=== PATIENT | female | born 1965 | race Caucasian/White ===

== ENCOUNTER 2022-10-30 07:09 | Emergency (ER) | payer MEDICAID, SELFPAY ==
[2022-10-30 07:10] VITALS: BP 178/93; PULSE 84; RESP 18; TEMP 36.5; O2SAT 97; BMI 29.9
--- NOTE | 2022-10-30 07:11 | XRR_ITS ---
PROCEDURE INFORMATION: Exam: XR Chest Exam date and time: 10/30/2022 7:23 AM Age: 56 years old Clinical indication: Pain; Angina pectoris; Additional info: Chest pain TECHNIQUE: Imaging protocol: Radiologic exam of the chest. Views: 1 view. COMPARISON: No relevant prior studies available. FINDINGS: Lungs: Linear scarring, possible bulla at the left lung apex. No consolidation. Pleural spaces: Unremarkable. No pleural effusion. No pneumothorax. Heart/Mediastinum: Unremarkable. No cardiomegaly. Bones/joints: Unremarkable. XR/XR chest 1V portable [id number] IMPRESSION: No acute findings.
--- NOTE | 2022-10-30 07:12 | ED_ITS ---
HPI - Chest Pain General: Chief Complaint: Chest Pain Stated Complaint: Chest Pain Time Seen by Provider: 10/30/22 07:11 Source: patient Mode of arrival: EMS History of Present Illness: 56-year-old female who presents to the emergency room with a complaint of chest pain. She has substernal chest pain rating to the neck that began while at rest. She reports a significant cardiac history with multiple previous stents and angiograms done in [place] and at a hospital in [facility]. She thinks her last 1 was a couple of years ago. Additionally she states she has been off of all her medications for a week since moving back to this area. She was previously on clopidogrel and isosorbide mononitrate as well as atorvastatin clonidine and lisinopril. She relates that she is borderline diabetic as well. Chest pain began while at rest and was relieved per her report with nitroglycerin. MD complaint: chest pain Onset (ago): hour(s) Timing of current episode: episodic Prior episodes: Yes Onset: during rest Pain location: substernal Pain radiation: neck Severity: moderate Quality: aching and heaviness Relieving factors: nitroglycerin Associated symptoms: Deny abdominal pain, dyspnea, fever(s), nausea or vomiting Review of Systems Const: Denies: fever(s), chills, fatigue or malaise Card: Reports: chest pain; Denies: edema, dyspnea on exertion or orthopnea Resp: Denies: dyspnea, productive cough or non-productive cough GI: Denies: abdominal pain, nausea or vomiting : Denies: flank pain, difficulty voiding, dysuria, urinary frequency or urinary urgency Skin/Breast: Denies: rash or pruritus [facility] ED PFSH: Medical History (Updated 10/30/22 @ 12:05 by Alin Singh DO) Hx of coronary angiogram Hypertension Impaired glucose tolerance Psychiatric care Social History (Updated 10/30/22 @ 07:39 by Alin Singh DO) Smoking and tobacco status: current every day smoker Physical Exam Const: GENERAL APPEARANCE: cooperative and comfortable ORIENTATION/CONSCIOUSNESS: Yes awake, Yes oriented to person, Yes oriented to place and Yes oriented to time HENMT: COMMON NORMALS: normocephalic, atraumatic and hearing grossly normal bilaterally HEAD & SCALP: normocephalic and atraumatic Resp: COMMON NORMALS: normal respiratory effort, No retractions, No use of accessory muscles and clear to auscultation bilaterally AUSCULTATION: clear to auscultation bilaterally Cardio: COMMON NORMALS: regular rate, regular rhythm and No murmurs present (Cardio) RATE: regular rate RHYTHM: regular rhythm GI: COMMON NORMALS: Soft to palpation and No hepatosplenomegaly present AUSCULTATION: Yes normoactive bowel sounds PALPATION: Yes Soft to palpation, No Tenderness to palpation present (GI), No Guarding due to palpation present (GI) and Yes No hepatosplenomegaly present Extremity: COMMON NORMALS: normal to inspection, capillary refill normal, no clubbing, cyanosis or edema, no calf tenderness and no pedal edema Neuro: SENSORIUM/ORIENTATION: Yes oriented to person, Yes oriented to place and Yes oriented to time Skin: COMMON NORMALS: no rashes or lesions noted GENERAL SKIN EXAM: no rashes or lesions noted Course Vital Signs: Vital signs: Vital Signs Temperature 97.7 F 10/30/22 07:10 Pulse Rate 67 10/30/22 09:46 Respiratory Rate 18 10/30/22 09:46 Blood Pressure 173/110 10/30/22 11:47 Pulse Oximetry 96 10/30/22 09:46 Oxygen Delivery Me thod Room Air 10/30/22 09:46 MDM - Chest Pain Medical Decision Making Cardiac enzymes and EKG negative. Patient reports extensive cardiac history including multiple stents. She been seen in [facility] and Hospital in [facility]. [place] visit was mostly surrounding blood pressure and a headache. Was concerned because of the reported history and her reports of chest pain while at rest requiring nitroglycerin. We had her stay since confirming her history would change disposition. Ultimately where we we were able to get the records from [place] which showed that in August 2021 she had a cardiac catheterization which showed normal coronary arteries there is no mention of any stents at the time of that angiogram. She also commented to physicians at [place] that she needed an aortic valve replacement they documented a normal aortic valve with no flow gradient. She is still adamant that she previously had stents recommend that she restart her lisinopril and isosorbide mononitrate also we will put her back on Plavix for antiplatelet therapy until this can be sorted out by getting old records from [place]. I do not think she needs to be admitted at this time given her normal cardiac work-up including angiography recently. We will ask sample case porter to help assist her to establish with a primary care doctor. Medical Records I reviewed the patient's medical records. Lab Data I reviewed the patient's lab results. 10/30/22 06:55 10/30/22 06:55 Radiology Impressions Chest X-Ray 10/30/22 07:11 IMPRESSION: No acute findings. Laboratory Results WBC 9.8 10^3/uL (4.0-10.0) 10/30/22 06:55 RBC 4.25 10^6/uL (4.1-5.3) 10/30/22 06:55 Hgb 13.3 g/dL (11.5-15.3) 10/30/22 06:55 Hct 40.1 % (37.0-47.0) 10/30/22 06:55 MCV 94.4 fl (81-99) 10/30/22 06:55 MCH 31.3 pg (28.0-34.0) 10/30/22 06:55 MCHC 33.2 g/dL (30.0-36.0) 10/30/22 06:55 RDW 12.3 % (12.1-15.1) 10/30/22 06:55 Plt Count 396 10^3/cmm (130-400) 10/30/22 06:55 MPV 9.1 fL (7.4-10.4) 10/30/22 06:55 Neut % (Auto) 48.3 % 10/30/22 06:55 Lymph % (Auto) 42.2 % 10/30/22 06:55 [place] % (Auto) 5.8 % 10/30/22 06:55 Eos % (Auto) 2.7 % 10/30/22 06:55 Baso % (Auto) 0.6 % 10/30/22 06:55 Neut # (Auto) 4.74 10^3/uL (1.8-7.7) 10/30/22 06:55 Lymph # (Auto) 4.1 10^3/uL (0.8-4.8) 10/30/22 06:55 [place] # (Auto) 0.6 10^3/uL (0.2-0.9) 10/30/22 06:55 Eos # (Auto) 0.3 10^3/uL (0.0-0.8) 10/30/22 06:55 Baso # (Auto) 0.1 10^3/uL (0.0-0.1) 10/30/22 06:55 Nucleated RBC % (auto) 0 % 10/30/22 06:55 Nucleated RBCs # 0.0 /100WBC 10/30/22 06:55 Sodium 139 mmol/L (136-145) 10/30/22 06:55 Potassium 4.4 mmol/L (3.5-5.1) 10/30/22 06:55 Chloride 105 mmol/L (98-107) 10/30/22 06:55 Carbon Dioxide 23 mmol/L (22-29) 10/30/22 06:55 Anion Gap 15.4 (5-19) 10/30/22 06:55 BUN 17 mg/dL (6-20) 10/30/22 06:55 Creatinine 0.6 mg/dL (0.5-0.9) 10/30/22 06:55 GFR Calculation 103.8 mL/min (90-130) 10/30/22 06:55 Glucose 180 mg/dL (65-115) H 10/30/22 06:55 Calculated Osmolality 294 mOsm/kg (285-295) 10/30/22 06:55 Calcium 8.8 mg/dL (8.5-10.5) 10/30/22 06:55 Total Bilirubin 0.2 mg/dL (0.15-1.2) 10/30/22 06:55 AST 15 U/L (0-32) 10/30/22 06:55 ALT 11 U/L (0-33) 10/30/22 06:55 Alkaline Phosphatase 81 U/L (35-105) 10/30/22 06:55 Troponin T Baseline 8 ng/L (0-10) 10/30/22 06:55 Troponin T 120 Minute 6.52 ng/L (0-10) 10/30/22 08:42 Delta Troponin T -1.48 ABS# (0-10) L 10/30/22 08:42 Total Protein 6.0 g/dL (6.6-8.7) L 10/30/22 06:55 Albumin 3.8 g/dL (3.5-5.2) 10/30/22 06:55 Globulin 2.2 g/dL (1.3-4.6) 10/30/22 06:55 Discharge Plan Discharge Patient Disposition: Home Clinical Impression: Impaired glucose tolerance, Hypertension Condition: Stable Prescriptions: New clopidogrel 75 mg tablet 75 mg PO DAILY Qty: 30 0RF isosorbide mononitrate 30 mg tablet extended release 24 hr 30 mg PO DAILY Qty: 30 0RF lisinopril 10 mg tablet 10 mg PO DAILY Qty: 30 0RF No Action clonidine HCl 0.1 mg Tablet 0.1 mg PO QAM Lipitor 20 mg Tablet 20 mg PO QAM Celexa 40 mg Tablet 40 mg PO DAILY PRN (Reason: mood) Xanax 1 mg Tablet 1 mg PO TID PRN (Reason: Anxiety) isosorbide mononitrate 30 mg Tablet Extended Release 24 Hr 30 mg PO QAM Plavix 75 mg Tablet 75 mg PO QAM lisinopril 10 mg Tablet 10 mg PO QAM ibuprofen 200 mg Tablet 1,200 mg PO Q6H PRN (Reason: Pain) hydroxyzine HCl 25 mg Tablet 25 mg PO QID PRN (Reason: Anxiety) Discharge Orders: Discharge ED (Routine); Ordered 10/30/22 Ordered By: Alin Singh Discharge Diet: Usual diet Discharge Activity: Increase activity as tolerated Patient Instructions: Opioid Safety, Pain Management Activity Restrictions/Additional Instructions: You were seen here today for an episode of chest pain. Old records were obtained from [place] and from hospital in [facility] where you were seen last year. The angiogram done last year showed normal coronary arteries. Recommend that you restart your isosorbide mononitrate and your lisinopril. You should also be on some form of antiplatelet therapy. There was no mention of stents in the angiogram done in [place] however you had mentioned that you with recalled having stents placed while in [place]. Until this is confirmed through old records would recommend that you continue taking clopidogrel. Case management will assist you in establishing locally with your primary care doctor. Stand Alone Forms: Work/School Release Coding Level of Care Code ED Insurance Account Assistant for Ivania Andrews
--- NOTE | 2022-10-30 07:12 | ECG_ITS ---
[facility] Test Date: 2022-10-30 Pat Name: Tomeka Fischer Department: Room: Gender: Female Gypsum Block Setter: : 1965 Requested By: Alin Aiken Order Number: [id number] Mary MD: Tatiana Navarrete M.D. Measurements Intervals [place] Rate: 80 P: 55 MN: 162 QRS: 73 QRSD: 85 T: 75 QT: 391 QTc: 452 Interpretive Statements SINUS RHYTHM POSSIBLE LEFT ATRIAL ENLARGEMENT [-0.1mV P-WAVE IN V1/V2] POSSIBLE RIGHT VENTRICULAR CONDUCTION DELAY [RSR (QR) IN V1/V2] No previous ECG available for comparison Electronically Signed On 10-30-2022 12:00:48 CDT by Tatiana Navarrete M.D. [email or web address] Securitieswest campus of delta regional medical centerGekko Global Marketsmercy health – the jewish hospital.[employer]/store/[id number]
[2022-10-30 07:27] LABS: Basophils # 0.1 10^3/uL (0.0-0.1); Basophils % 0.6 %; Eosinophils # 0.3 10^3/uL (0.0-0.8); Eosinophils % 2.7 %; Hematocrit 40.1 % (37.0-47.0); Hemoglobin 13.3 g/dL (11.5-15.3); Lymphocytes # 4.1 10^3/uL (0.8-4.8); Lymphocytes % 42.2 %; Mean Corpuscular HGB Conc 33.2 g/dL (30.0-36.0); Mean Corpuscular Hemoglobin 31.3 pg (28.0-34.0); Mean Corpuscular Volume 94.4 fl (81-99); Mean Platelet Volume 9.1 fL (7.4-10.4); Monocytes # 0.6 10^3/uL (0.2-0.9); Monocytes % 5.8 %; Neutrophils # 4.74 10^3/uL (1.8-7.7); Neutrophils % 48.3 %; Nucleated Red Blood Cells % 0 %; Platelet Count 396 10^3/cmm (130-400); Red Blood Count 4.25 10^6/uL (4.1-5.3); Red Cell Distribution Width 12.3 % (12.1-15.1); White Blood Count 9.8 10^3/uL (4.0-10.0)
[2022-10-30 07:41] LABS: Troponin(5th) Baseline 8 ng/L (0-10)
[2022-10-30 07:46] LABS: Alanine Aminotransferase 11 U/L (0-33); Albumin Level 3.8 g/dL (3.5-5.2); Alkaline Phosphatase 81 U/L (35-105); Blood Urea Nitrogen 17 mg/dL (6-20); Calcium 8.8 mg/dL (8.5-10.5); Carbon Dioxide 23 mmol/L (22-29); Chloride 105 mmol/L (98-107); Globulin 2.2 g/dL (1.3-4.6); Glomerular Filtration Rate 103.8 mL/min (90-130); Glucose 180 mg/dL (65-115); Osmolality Calculated 294 mOsm/kg (285-295); Sodium 139 mmol/L (136-145); Total Bilirubin 0.2 mg/dL (0.15-1.2)
[2022-10-30 07:51] LABS: Anion Gap 15.4 (5-19); Aspartate Amino Transferase 15 U/L (0-32); Potassium 4.4 mmol/L (3.5-5.1)
[2022-10-30] MEDS: metoprolol tartrate 1 mg/1 mL SDV 5 mL 2.5 MG IVP (07:52)
[2022-10-30] MEDS: metoprolol succinate ER (24 HR) 25 mg Tablet PO (07:52)
[2022-10-30 07:53] VITALS: BP 185/107; PULSE 81
[2022-10-30] MEDS: nitroglycerin 1 gm/inch oint Pkt 0.5 INCH TOPICAL (07:53)
[2022-10-30 08:00] VITALS: BP 185/107; PULSE 71; RESP 21; O2SAT 96
--- NOTE | 2022-10-30 08:15 | PC.NURSE ---
Pt requested drink. Explained to pt we needed to get tests back. Pt verbalized understanding.
--- NOTE | 2022-10-30 08:42 | PC.PHAR ---
pt states she takes care of her own medications-pt states they restarted her on lisinopril 10mg qam pt brought in med bottle for lisinopril 10mg daily dated 09/21/22 and lisinopril 30mg daily rx bottle dated 03/20/22 pt states only taking the 10mg qam-pt states she takes lipitor 20mg qam rx bottle brought in dated 03/20/22 90d/s-pt states she ran out of imdur er 30mg daily a week ago rx bottle brought in dated 03/21/22 90d/s-pt states she takes her plavix 75mg daily rx bottle dated 09/21/22 30d/s-pt states she ran out of her xanax 1mg tid prn last week rx bottle dated 09/26/22 #12-pt brought in celexa 40mg daily dated 03/23/22 pt states she hasnt been taking states if she did she would take prn -pt states she hasnt taken metoprolol tart 25mg bid since mar 2022 bottle brought in dated 02/19/22-pt also brought in clonidine 0.1mg bid filled 09/21/22 pt states she has been trying to make it last so she has just been taking 0.1mg qam-notes are made in the pharmacy comments
--- NOTE | 2022-10-30 09:10 | PC.NURSE ---
approved drink at this time. Pt brought diet coke per her request. Denies further needs at this time.
--- NOTE | 2022-10-30 09:12 | ECG_ITS ---
[facility] Test Date: 2022-10-30 Pat Name: Tomeka Fischer Department: Room: Gender: Female Processing Rep: : 1965 Requested By: Alin Aiken Order Number: [id number] Mary MD: Tatiana Navarrete M.D. Measurements Intervals [place] Rate: 56 P: 60 [place]: 167 QRS: 72 QRSD: 89 T: 76 QT: 443 QTc: 431 Interpretive Statements SINUS BRADYCARDIA POSSIBLE RIGHT VENTRICULAR CONDUCTION DELAY [RSR (QR) IN V1/V2] Compared to ECG 10/30/2022 07:17:09 Sinus rhythm no longer present Electronically Signed On 10-30-2022 12:03:30 CDT by Tatiana Navarrete M.D. [id number]
[2022-10-30 09:15] VITALS: BP 169/99; PULSE 66; RESP 20; O2SAT 97
[2022-10-30 09:22] LABS: Troponin 5 2HR 6.52 ng/L (0-10); Troponin 5 2HR Delta -1.48 ABS# (0-10)
[2022-10-30 09:46] VITALS: BP 150/98; PULSE 67; RESP 18; O2SAT 96
--- NOTE | 2022-10-30 10:26 | PC.NURSE ---
This RN to bedside. Explained to pt that labs were back, but MD is waiting on records from outside facility to talk to tire changer aircraft here. Pt is obviously upset and states From [place]?! That will take all day! Pt c/o headache and states we haven't given her anything for pain. offered Tylenol, but pt declined and states I have IBUprofen . Pt states Can I just talk to the doctor. MD aware. MD and nurse magazine supervisor to pt bedside. At this time, pt had pulled off traffic monitor specialist and refused to allow this RN to attempt vitals.
--- NOTE | 2022-10-30 11:10 | PC.NURSE ---
Addendum entered by Gabriella Robles RN 10/30/22 11:12: Previous note documented late. Incident happened at 1018. Original Note: Robert to RN states pt is asking for an update. This RN at a critical pt bedside and requested Robret tell pt this RN would be there to update her bernardo.
--- NOTE | 2022-10-30 11:19 | PC.NURSE ---
Pt made aware of plan of care including meds to be given. Pt agreeable to this at this time.
--- NOTE | 2022-10-30 11:25 | PC.NURSE ---
Pt refusing vitals at this time. Wants food. MD made aware and food ordered. Pt given pudding and jello and made aware that a food tray was coming. Pt does not wish to stay for food tray. IV DC'd. Cath intact.
[2022-10-30] MEDS: clopidogrel 75 mg Tablet PO (11:26)
[2022-10-30] MEDS: isosorbide mononitrate ER 30 mg Tablet PO (11:26)
[2022-10-30] MEDS: LORazepam 2 mg Tablet PO (11:26)
[2022-10-30] MEDS: lisinopril 10 mg Tablet PO (11:26)
[2022-10-30 11:47] VITALS: BP 173/110
--- NOTE | 2022-10-30 11:47 | PC.NURSE ---
This RN and MD to bedside to go over findings and DC instructions. Pt verbalized understanding and told MD she has no further questions. Pt agreeable to allow me to take one BP before she leaves.
--- NOTE | 2022-10-31 09:41 | DCPLANNER ---
Addendum entered by Diana Guzman 11/12/22 15:47: Patient did attend this appointment to establish care with Dr. Reid Addendum entered by Diana Guzman 11/01/22 10:49: lands resource manager received the following message from [facility] regarding follow up appointment: Referral for Dr Contreras but she doesn't want to wait that long so I have sent the referral back to the Nurse Mat Weaver to approve her seeing a different provider. Addendum entered by Diana Guzman 11/01/22 10:46: Patient called family service caseworker back wanting help in getting established with a primary care physician. lands resource manager called [facility], a follow up appointment was scheduled for Saturday, November 07, 2022 at 8:[address] Reid. Patient is aware of appointment. Patient asked about services at [facility] being scheduled, patient stated that she had completed her initial assessment. lands resource manager messaged [facility] about getting patient scheduled with both therapy services and medication services. Original Note: lands resource manager had message to speak with patient about getting established with a primary care physician - no answer at this time.
== END 2022-10-30 12:34 | disposition home or self-care (01) ==
PROVIDERS: Emergency Provider Family Medicine
DX: I10 Essential (primary) hypertension (principal); R73.02 Impaired glucose tolerance (oral); Z79.02 Long term (current) use of antithrombotics/antiplatelets; F17.210 Nicotine dependence, cigarettes, uncomplicated
CPT/HCPCS: 36415; 71045; 80053; 84484; 85025; 93005; 96374; 99285; J3490

== ENCOUNTER 2022-11-01 15:11 | Emergency (ER) | payer MEDICAID, SELFPAY ==
[2022-11-01 15:16] VITALS: BP 127/82; PULSE 84; RESP 16; TEMP 36.5; O2SAT 97
--- NOTE | 2022-11-01 15:39 | W.ED.HA ---
HPI - Headache General: Chief Complaint: Headache Stated Complaint: high blood sugar , migrane Time Seen by Provider: 11/01/22 15:30 Source: patient Mode of arrival: ambulatory Limitations: no limitations History of Present Illness: 56-year-old female states that she has had a headache since 1030. States she has a history of migraines headache began gradually is worsened throughout the day states headaches currently an 8 out of 10 she had some slight photophobia. She denies any weakness denies this being the worst headache of her life. She had no vomiting. Associated symptoms: Deny chest pain, fever(s), nausea, rash or vomiting Review of Systems Const: Denies: fever(s) or chills ENMT: Denies: throat pain or dental pain Card: Denies: chest pain Resp: Denies: dyspnea GI: Denies: abdominal pain, nausea, vomiting or diarrhea Musc: Denies: neck pain or back pain Skin/Breast: Denies: rash Neuro: Reports: headache(s) PFS ED PFSH: Medical History Hx of coronary angiogram Hypertension Impaired glucose tolerance Psychiatric care Social History Smoking and tobacco status: current every day smoker Physical Exam Const: COMMON NORMALS: no acute distress, patient oriented x3 and healthy appearing HENMT: COMMON NORMALS: normocephalic and atraumatic HEAD & SCALP: normocephalic and atraumatic Eye: COMMON NORMALS: Equal, round and reactive pupils present and EOMs intact bilaterally PUPIL: Yes Equal, round and reactive pupils present Neck/C-Spine: COMMON NORMALS: full ROM and supple Chest: COMMONS NORMALS: normal inspection of the chest Resp: COMMON NORMALS: normal respiratory effort Cardio: COMMON NORMALS: regular rate, regular rhythm and No murmurs present (Cardio) RATE: regular rate RHYTHM: regular rhythm GI: INSPECTION: Yes normal to inspection Extremity: COMMON NORMALS: normal to inspection and full ROM Neuro: COMMON NORMALS: patient oriented x3, moves all extremities and no focal motor deficits Psych: COMMON NORMALS: mental status grossly normal, Normal thought process present and cooperative THOUGHT PROCESS: Normal thought process present Skin: COMMON NORMALS: no rashes or lesions noted and no wounds GENERAL SKIN EXAM: no rashes or lesions noted Course Vital Signs: Vital signs: Vital Signs Temperature 97.7 F 11/01/22 15:16 Pulse Rate 70 11/01/22 16:04 Respiratory Rate 16 11/01/22 16:04 Blood Pressure 129/78 11/01/22 16:04 Pulse Oximetry 95 11/01/22 16:04 Oxygen Delivery Me thod Room Air 11/01/22 16:04 MDM - Headache Medical Decision Making Patient presents here with headache likely migraine headache her headaches much improved after Reglan Benadryl she is stable for discharge no signs of subarachnoid hemorrhage or meningitis. Discharge Plan Discharge Patient Disposition: Home Clinical Impression: Headache Condition: Stable Prescriptions: No Action clonidine HCl 0.1 mg Tablet 0.1 mg PO QAM atorvastatin [Lipitor] 20 mg Tablet 20 mg PO QAM alprazolam [Xanax] 1 mg Tablet 1 mg PO TID PRN (Reason: Anxiety) hydroxyzine HCl 25 mg Tablet 25 mg PO QID PRN (Reason: Anxiety) clopidogrel 75 mg tablet 75 mg PO DAILY Qty: 30 0RF lisinopril 10 mg tablet 10 mg PO DAILY Qty: 30 0RF metoprolol tartrate 25 mg tablet 25 mg PO BID Discharge Orders: Discharge ED (Routine); Ordered 11/01/22 Ordered By: Tony Norris Referrals: Heraclio Reid MD [Primary Care Provider] - Discharge Diet: Advance as tolerated Discharge Activity: Resume usual activity Patient Instructions: Acute Headache (ED) Coding Level of Care Code ED Oracle Consultant for Ivania Andrews
[2022-11-01] MEDS: metoclopramide 5 mg/mL SDV 2 mL 10 MG IVP (15:53)
[2022-11-01] MEDS: sodium chloride 0.9% 1,000 ML 999 ML IV (15:53)
[2022-11-01] MEDS: diphenhydrAMINE 50 mg/mL SDV 1mL IVP (15:53)
[2022-11-01 16:04] VITALS: BP 129/78; PULSE 70; RESP 16; O2SAT 95
== END 2022-11-01 17:31 | disposition home or self-care (01) ==
PROVIDERS: Emergency Provider Emergency Medicine; PCP Family Medicine Adult Medicine
DX: R51.9 Headache, unspecified (principal); Z79.02 Long term (current) use of antithrombotics/antiplatelets; I10 Essential (primary) hypertension; F17.210 Nicotine dependence, cigarettes, uncomplicated
CPT/HCPCS: 96374; 96375; 99285; J1200; J2765; J7030

== ENCOUNTER 2022-11-03 18:19 | Emergency (ER) | payer MEDICAID, SELFPAY ==
--- NOTE | 2022-11-03 18:26 | CTR_ITS ---
PROCEDURE INFORMATION: Exam: CT Head Without Contrast Exam date and time: 11/03/2022 6:23 PM Age: 56 years old Clinical indication: Stroke-like symptoms; Right facial droop; Additional info: Headache with RT facial droop TECHNIQUE: Imaging protocol: Computed tomography of the head without contrast. Radiation optimization: All CT scans at this facility use at least one of these dose optimization techniques: automated exposure control; mA and/or kV adjustment per patient size (includes targeted exams where dose is matched to clinical indication); or iterative reconstruction. Other technique: STROKE PROTOCOL was implemented. REPORTING DATA: Count of CT and Cardiac NM exams in prior 12 months: This patient has received 0 known CTs and 0 known cardiac nuclear medicine studies in the 12 months prior to the current study. COMPARISON: No relevant prior studies available. RADIATION DOSE METRICS: Total DLP (mGy-cm): 1130.38 FINDINGS: Brain: No hemorrhage. No edema. Mild diffuse cerebral atrophy and sequela of chronic small vessel ischemic disease. Rounded area of hypoattenuation in the left basal ganglia measuring 9 mm in size of indeterminate age. No mass effect. Cerebral ventricles: No ventriculomegaly. Paranasal sinuses: Visualized sinuses are unremarkable. No fluid levels. Mastoid air cells: Visualized mastoid air cells are well aerated. Bones/joints: Unremarkable. No acute fracture. Soft tissues: Unremarkable. CT/CT head wo con* [id number] IMPRESSION: Rounded area of hypoattenuation in the left basal ganglia suggestive of an age-indeterminate lacunar infarct. Otherwise, no acute findings. ASSESSMENT: ASPECTS ([place] Stroke Program Early CT Score) is 10.
[2022-11-03 18:29] VITALS: BP 170/107; PULSE 86; RESP 16; O2SAT 97
[2022-11-03 18:38] LABS: Basophils # 0.1 10^3/uL (0.0-0.1); Basophils % 0.7 %; Eosinophils # 0.2 10^3/uL (0.0-0.8); Eosinophils % 1.8 %; Hematocrit 37.7 % (37.0-47.0); Hemoglobin 12.8 g/dL (11.5-15.3); Lymphocytes % 47.3 %; Mean Corpuscular Hemoglobin 31.1 pg (28.0-34.0); Mean Corpuscular Volume 91.7 fl (81-99); Mean Platelet Volume 9.3 fL (7.4-10.4); Monocytes # 0.7 10^3/uL (0.2-0.9); Monocytes % 6.6 %; Neutrophils # 4.57 10^3/uL (1.8-7.7); Nucleated Red Blood Cells % 0 %; Platelet Count 428 10^3/cmm (130-400); Red Blood Count 4.11 10^6/uL (4.1-5.3); Red Cell Distribution Width 12.6 % (12.1-15.1); White Blood Count 10.6 10^3/uL (4.0-10.0)
[2022-11-03 18:45] VITALS: BP 188/95; PULSE 82; RESP 16; O2SAT 96
[2022-11-03 18:50] LABS: INR 0.88 (0.8-1.2)
[2022-11-03 18:51] LABS: Partial Thromboplastin Time 28.9 SECONDS (23.9-36.7)
--- NOTE | 2022-11-03 18:56 | ECG_ITS ---
[facility] Test Date: 2022-11-03 Pat Name: Tomeka Fischer Department: Room: Gender: Female Eyelet Punch Operator: : 1965 Requested By: Valerio Braxton Order Number: [id number] Mary MD: Tatiana Navarrete M.D. Measurements Intervals [place] Rate: 78 P: 130 SD: 163 QRS: 110 QRSD: 150 T: 139 QT: 438 QTc: 501 Interpretive Statements SINUS RHYTHM ARM LEADS REVERSED [INVERTED P AND QRS IN I] Compared to ECG 10/30/2022 09:19:18 Sinus bradycardia no longer present Electronically Signed On 11-03-2022 23:22:41 CDT by Tatiana Navarrete M.D. [id number]
[2022-11-03 19:00] VITALS: BP 175/91; PULSE 80; RESP 16; O2SAT 94
[2022-11-03 19:00] LABS: Alanine Aminotransferase 12 U/L (0-33); Alkaline Phosphatase 79 U/L (35-105); Anion Gap 16.6 (5-19); Aspartate Amino Transferase 14 U/L (0-32); Blood Urea Nitrogen 18 mg/dL (6-20); Calcium 8.7 mg/dL (8.5-10.5); Carbon Dioxide 22 mmol/L (22-29); Chloride 104 mmol/L (98-107); Globulin 2.6 g/dL (1.3-4.6); Glomerular Filtration Rate 86.9 mL/min (90-130); Glucose 217 mg/dL (65-115); Osmolality Calculated 296 mOsm/kg (285-295); Potassium 3.6 mmol/L (3.5-5.1); Sodium 139 mmol/L (136-145); Total Bilirubin 0.2 mg/dL (0.15-1.2); Total Protein 6.6 g/dL (6.6-8.7)
[2022-11-03 19:02] LABS: Alcohol Level < 10 mg/dL (0-10)
[2022-11-03] MEDS: dexamethasone 4 mg/mL INJ 8 MG IVP (19:06)
[2022-11-03] MEDS: valproic acid inj 500 MG in sodium chloride 0.9% 50 ML 55 MG IV (19:09)
[2022-11-03 19:15] VITALS: BP 163/94; PULSE 74; RESP 16; O2SAT 96
[2022-11-03] MEDS: ketorolac 60 mg/2 mL INJ 30 MG IM (19:25)
[2022-11-03 19:47] LABS: Amphetamines Screen Urine Positive (Negative); Barbiturates Screen Urine Negative (Negative); Benzodiazepines Screen Urine Negative (Negative); Cocaine Screen Urine Negative (Negative); Opiate Screen Urine Negative (Negative); PCP Screen Urine Negative (Negative); THC Screen Urine Positive (Negative)
[2022-11-03 19:56] LABS: Add Urine Culture? Yes; Add Urine Microscopic? YES; Bacteria Urine TRACE /hpf; Bilirubin Urine Neg (Negative); Blood Urine Neg (Negative); Glucose Urine UA Norm (Normal); Ketones Urine Negative (Negative); Leukocyte Esterase Urine Trace (Negative); Nitrate Urine Negative (Negative); Protein Urine Neg (Negative); RBC Urine 0-4 /hpf (0-2); Squamous Epithelial Cell Urine 15-25 /hpf (0-5); Urine Appearance Cloudy (CLEAR); Urine Color Yellow (Yellow); Urobilinogen Urine Norm (Negative); pH Urine 5 (5-7)
[2022-11-03 20:02] VITALS: BP 166/90; PULSE 78; RESP 16; O2SAT 96
[2022-11-03 21:03] VITALS: BP 182/104; PULSE 82; RESP 16; O2SAT 99
[2022-11-03] MEDS: cloNIDine 0.1 mg Tablet PO (21:12)
[2022-11-03] MEDS: metoprolol tartrate 25 mg Tablet PO (21:12)
--- NOTE | 2022-11-03 23:08 | W.ED.HA ---
HPI - Headache General: Chief Complaint: Headache Stated Complaint: HEADACHE; RIGHT EYE DROOPING Time Seen by Provider: 11/03/22 18:21 Source: patient History of Present Illness: 56-year-old female who tells me she has a history of heart disease as well as mini strokes in the past. She has some facial asymmetry she says. She presents with a headache, and right-sided facial droop. She states the facial droop is worse than it has been. She awoke from a nap around 430 and noticed this. She has no language problems, vision changes, or significant weakness otherwise. She notes that her head hurts quite badly. MD elicited complaint: headache and migraine Associated symptoms: Reports nausea, photophobia and weakness; Deny chest pain, confusion, fever(s), neck stiffness, rash, seizures or vomiting Review of Systems Const: Denies: fever(s) Eyes: Denies: change in vision Card: Denies: chest pain Resp: Denies: dyspnea GI: Reports: nausea; Denies: abdominal pain or vomiting Musc: Denies: neck pain Skin/Breast: Denies: rash Neuro: Reports: headache(s) and other; Denies: numbness in extremities, weakness in extremities, sensory changes, dizziness, confusion or Slurred speech present [facility] ED PFSH: Medical History Hx of coronary angiogram Hypertension Impaired glucose tolerance Psychiatric care Social History Smoking and tobacco status: current every day smoker Physical Exam Const: COMMON NORMALS: no acute distress and alert GENERAL APPEARANCE: cooperative; not ill appearing and not frail appearing HENMT: COMMON NORMALS: normocephalic and Normal external nose present HEAD & SCALP: normocephalic FACE & SINUS: normal facial exam and face symmetric NOSE: Normal external nose present Eye: COMMON NORMALS: Equal, round and reactive pupils present and EOMs intact bilaterally PUPIL: Yes Equal, round and reactive pupils present DIRECT OPHTHALMOSCOPY: Yes photophobia Neck/C-Spine: GENERAL: Yes trachea midline Chest: CHEST: Yes Symmetrical chest wall rise Resp: COMMON NORMALS: normal respiratory effort, No retractions, No use of accessory muscles and clear to auscultation bilaterally AUSCULTATION: clear to auscultation bilaterally Cardio: COMMON NORMALS: regular rate and regular rhythm RATE: regular rate RHYTHM: regular rhythm GI: COMMON NORMALS: Normal to inspection, nondistended, normoactive bowel sounds present Extremity: COMMON NORMALS: no pedal edema Neuro: FERNANDO COMA SCALE: document GCS findings [place] coma scale eye opening: Spontaneous Fernando coma scale verbal response: Orientated Fernando coma scale motor response: Obey commands Fernando coma scale total score: 15 SENSORIUM/ORIENTATION: Yes alert CRANIAL NERVES: Yes CN VII (facial) Laterality: right CN VII findings: facial droop COORDINATION/BALANCE: avehrh-fh-lzhh test normal and nsog-il-eoqh test normal SPEECH: speech normal SENSORY EXAM: Yes extremities (intact) MOTOR EXAM: 5/5 motor strength present throughout and Pronator motor function not present COORDINATION: gbkehw-da-eaju test normal and qbiq-py-zyun test normal Psych: COMMON NORMALS: mental status grossly normal, cooperative and speech normal SPEECH: Yes normal speech Skin: COMMON NORMALS: no rashes or lesions noted GENERAL SKIN EXAM: no rashes or lesions noted Course Vital Signs: Vital signs: Vital Signs Pulse Rate 82 11/03/22 21:03 Respiratory Rate 16 11/03/22 21:03 Blood Pressure 182/104 11/03/22 21:03 Pulse Oximetry 99 11/03/22 21:03 Oxygen Delivery Me thod Room Air 11/03/22 18:29 MDM - Headache Medical Decision Making The patient was given Toradol, Decadron, Zofran and Depacon. Her headache is down to a 0.5 out of 10 she says. Facial droop is improved. Head CT shows an old lacunar infarct otherwise normal. Laboratory is not remarkable, safe positive drug screen for marijuana and amphetamines. No signs of stroke besides the facial weakness, which is at least to some degree chronic. Likely migraine with worsening facial droop. As she is improved, she will be allowed discharge home. She is given her home blood pressure medications here, as her blood pressure has come up since she missed her nightly dose. Lab Data 11/03/22 18:03 11/03/22 18:[address] 11/03/22 18:26 IMPRESSION: Rounded area of hypoattenuation in the left basal ganglia suggestive of an age-indeterminate lacunar infarct. Otherwise, no acute findings. ASSESSMENT: ASPECTS ([place] Stroke Program Early CT Score) is 10. Laboratory Results WBC 10.6 10^3/uL (4.0-10.0) H 11/03/22 18:03 RBC 4.11 10^6/uL (4.1-5.3) 11/03/22 18:03 Hgb 12.8 g/dL (11.5-15.3) 11/03/22 18:03 Hct 37.7 % (37.0-47.0) 11/03/22 18:03 MCV 91.7 fl (81-99) 11/03/22 18:03 MCH 31.1 pg (28.0-34.0) 11/03/22 18: MCHC 34.0 g/dL (30.0-36.0) 11/03/22 18:03 RDW 12.6 % (12.1-15.1) 11/03/22 18:03 Plt Count 428 10^3/cmm (130-400) H 11/03/22 18:03 MPV 9.3 fL (7.4-10.4) 11/03/22 18:03 Neut % (Auto) 43.0 % 11/03/22 18:03 Lymph % (Auto) 47.3 % 11/03/22 18:03 [place] % (Auto) 6.6 % 11/03/22 18:03 Eos % (Auto) 1.8 % 11/03/22 18:03 Baso % (Auto) 0.7 % 11/03/22 18:03 Neut # (Auto) 4.57 10^3/uL (1.8-7.7) 11/03/22 18:03 Lymph # (Auto) 5.0 10^3/uL (0.8-4.8) H 11/03/22 18:03 [place] # (Auto) 0.7 10^3/uL (0.2-0.9) 11/03/22 18:03 Eos # (Auto) 0.2 10^3/uL (0.0-0.8) 11/03/22 18:03 Baso # (Auto) 0.1 10^3/uL (0.0-0.1) 11/03/22 18:03 Nucleated RBC % (auto) 0 % 11/03/22 18:03 Nucleated RBCs # 0.0 /100WBC 11/03/22 18:03 PT 12.10 SECONDS (12.1-14.9) 11/03/22 18:03 INR 0.88 (0.8-1.2) 11/03/22 18:03 APTT 28.9 SECONDS (23.9-36.7) 11/03/22 18:03 Sodium 139 mmol/L (136-145) 11/03/22 18:03 Potassium 3.6 mmol/L (3.5-5.1) 11/03/22 18:03 Chloride 104 mmol/L (98-107) 11/03/22 18:03 Carbon Dioxide 22 mmol/L (22-29) 11/03/22 18:03 Anion Gap 16.6 (5-19) 11/03/22 18:03 BUN 18 mg/dL (6-20) 11/03/22 18:03 Creatinine 0.7 mg/dL (0.5-0.9) 11/03/22 18:03 GFR Calculation 86.9 mL/min (90-130) L 11/03/22 18:03 Glucose 217 mg/dL (65-115) H 11/03/22 18:03 Calculated Osmolality 296 mOsm/kg (285-295) H 11/03/22 18:03 Calcium 8.7 mg/dL (8.5-10.5) 11/03/22 18:03 Total Bilirubin 0.2 mg/dL (0.15-1.2) 11/03/22 18:03 AST 14 U/L (0-32) 11/03/22 18:03 ALT 12 U/L (0-33) 11/03/22 18:03 Alkaline Phosphatase 79 U/L (35-105) 11/03/22 18:03 Total Protein 6.6 g/dL (6.6-8.7) 11/03/22 18:03 Albumin 4.0 g/dL (3.5-5.2) 11/03/22 18:03 Globulin 2.6 g/dL (1.3-4.6) 11/03/22 18:03 Urine Color Yellow (Yellow) 11/03/22 19:33 Urine Appearance Cloudy (CLEAR) A 11/03/22 19:33 Urine pH 5 (5-7) 11/03/22 19:33 Ur Specific [place] 1.020 (1.005-1.030) 11/03/22 19:33 Urine Protein Neg (Negative) 11/03/22 19:33 Urine Glucose (UA) Norm (Normal) 11/03/22 19:33 Urine Ketones Negative (Negative) 11/03/22 19:33 Urine Blood Neg (Negative) 11/03/22 19:33 Urine Nitrate Negative (Negative) 11/03/22 19:33 Urine Bilirubin Neg (Negative) 11/03/22 19:33 Urine Urobilinogen Norm mg/dL (Negative) 11/03/22 19:33 Ur Leukocyte Esterase Trace (Negative) H 11/03/22 19:33 Urine RBC 0-4 /hpf (0-2) H 11/03/22 19:33 Urine WBC 5-10 /hpf (0-5) H 11/03/22 19:33 Ur Squamous Epith Cells 15-25 /hpf (0-5) H 11/03/22 19:33 Amorphous Sediment Not Reportable 11/03/22 19:33 Urine Bacteria Trace /hpf (NONE) 11/03/22 19:33 Urine Yeast 1+ /hpf H 11/03/22 19:33 Urine Opiates Screen Negative ng/mL (Negative) 11/03/22 19:33 Ur Barbiturates Screen Negative ng/mL (Negative) 11/03/22 19:33 Ur Phencyclidine Scrn Negative ng/mL (Negative) 11/03/22 19:33 Ur Amphetamines Screen Positive ng/mL (Negative) H 11/03/22 19:33 U Benzodiazepines Scrn Negative ng/mL (Negative) 11/03/22 19:33 Urine Cocaine Screen Negative ng/mL (Negative) 11/03/22 19:33 U Marijuana (THC) Screen Positive ng/mL (Negative) H 11/03/22 19:33 Ethyl Alcohol < 10 mg/dL (0-10) 11/03/22 18:03 Discharge Plan Discharge Patient Disposition: Home Clinical Impression: Migraine, Facial nerve palsy Condition: Stable Prescriptions: No Action clonidine HCl 0.1 mg Tablet 0.1 mg PO QAM atorvastatin [Lipitor] 20 mg Tablet 20 mg PO QAM alprazolam [Xanax] 1 mg Tablet 1 mg PO TID PRN (Reason: Anxiety) hydroxyzine HCl 25 mg Tablet 25 mg PO QID PRN (Reason: Anxiety) clopidogrel 75 mg tablet 75 mg PO DAILY Qty: 30 0RF lisinopril 10 mg tablet 10 mg PO DAILY Qty: 30 0RF metoprolol tartrate 25 mg tablet 25 mg PO BID Discharge Orders: Discharge ED (Routine); Ordered 11/03/22 Ordered By: Valerio Mackay Referrals: Heraclio Reid MD [Primary Care Provider] - 1-3 days Patient Instructions: Sanchez Palsy (ED), Acute Headache (ED), Opioid Safety, Pain Management Activity Restrictions/Additional Instructions: Return for return of headache, vomiting, mental status changes, weakness, other concerning symptoms. See your doctor next week as scheduled. Coding Level of Care Code ED Medicare Coordinator for Ivania Andrews
== END 2022-11-03 21:16 | disposition home or self-care (01) ==
PROVIDERS: Emergency Provider Emergency Medicine; PCP Family Medicine Adult Medicine
DX: G43.909 Migraine, unspecified, not intractable, without status migrainosus (principal); G51.0 Bell's palsy; Z79.02 Long term (current) use of antithrombotics/antiplatelets; I10 Essential (primary) hypertension; F17.210 Nicotine dependence, cigarettes, uncomplicated
CPT/HCPCS: 70450; 80053; 80306; 80307; 81001; 85025; 85610; 85730; 87086; 93005; 96365; 96375; 99285; J1100; J1885; J3490

== ENCOUNTER 2022-11-04 11:25 | Emergency (ER) | payer MEDICAID, SELFPAY ==
[2022-11-04 11:29] VITALS: BMI 30.9
[2022-11-04 11:33] VITALS: BP 144/81; PULSE 78; RESP 18; O2SAT 96
--- NOTE | 2022-11-04 11:34 | ECG_ITS ---
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 Measurements Intervals [place] Rate: 73 P: 45 ND: 172 QRS: 49 QRSD: 92 T: 50 QT: 398 QTc: 441 Interpretive Statements SINUS RHYTHM Compared to ECG 11/03/2022 18:56:04 No significant changes Electronically Signed On 11-04-2022 13:22:56 CDT by Tatiana Navarrete M.D. [id number] f
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
--- NOTE | 2022-11-04 11:48 | ED_ITS ---
HPI - Chest Pain General: Chief Complaint: Chest Pain Stated Complaint: CHEST PAIN Time Seen by Provider: 11/04/22 11:37 Source: patient Mode of arrival: ambulatory Limitations: no limitations History of Present Illness: This patient returns to the emergency department because of chest pain symptoms. She says she was fixing a meal for her children and she developed substernal chest pain similar to that she is experienced in the past. She states it did not radiate. She states she took nitroglycerin and within less than 5 minutes the pain resolved. Denies any current chest pain. She admits that she has not taken her metoprolol or her clonidine recently she is been out of those medications. She denies any shortness of breath, fevers chills etc. She is still smoking tobacco. She states that she has had prior angiograms and she states she has had stents placed but then she says she had subsequent angiogram in [facility] last year and there was question of whether she has had a s tent previously but she still takes Plavix. MD complaint: chest pain Pertinent past history: coronary artery disease Timing of current episode: now resolved Pain location: substernal Associated symptoms: Deny abdominal pain, dyspnea, fever(s), nausea, syncope or vomiting Treatment prior to arrival: aspirin and nitroglycerin Review of Systems Const: Denies: fever(s) or chills Eyes: Denies: change in vision ENMT: Denies: odynophagia or nasal discharge Card: Reports: chest pain; Denies: syncope or pre-syncope Resp: Denies: dyspnea, productive cough or wheezing GI: Denies: abdominal pain, nausea or vomiting : Denies: flank pain, difficulty voiding or dysuria Musc: Denies: neck pain, back pain, extremity pain or extremity swelling Neuro: Reports: headache(s) Psych: Reports: anxiety PFSH ED PFSH: Medical History Hx of coronary angiogram Hypertension Impaired glucose tolerance Psychiatric care Social History Smoking and tobacco status: current every day smoker Physical Exam Narrative: EXAM NARRATIVE: She appears to be in good spirits. She interacts in a loquacious fashion. She is wearing dark glasses during her evaluation. Const: COMMON NORMALS: no acute distress and patient oriented x3 GENERAL APPEARANCE: cooperative and comfortable NUTRITIONAL APPEARANCE: overweight HENMT: COMMON NORMALS: normocephalic, atraumatic, moist oral mucous membranes and oropharynx normal HEAD & SCALP: normocephalic and atraumatic Eye: COMMON NORMALS: Equal, round and reactive pupils present PUPIL: Yes Eq ual, round and reactive pupils present Neck/C-Spine: COMMON NORMALS: full ROM, no lymphadenopathy and No carotid bruits Chest: COMMONS NORMALS: normal inspection of the chest and normal palpation of entire chest wall Resp: COMMON NORMALS: normal respiratory effort, No use of accessory muscles and clear to auscultation bilaterally AUSCULTATION: clear to auscultation bilaterally Cardio: COMMON NORMALS: regular rate, regular rhythm, No murmurs present (Car pinky) and Peripheral pulses 2+ throughout RATE: regular rate RHYTHM: regular rhythm PERIPHERAL PULSES: Peripheral pulses 2+ throughout GI: COMMON NORMALS: Normal to inspection, nondistended, normoactive bowel sounds present, Soft to palpation and non-tender PALPATION: Yes Soft to palpation : COMMON NORMALS: Yes no CVA tenderness BLADDER/KIDNEY EXAM: Yes no CVA tenderness Back/Pelvis: COMMON NORMALS: no CVA tenderness, thoracic and lumbar spine normal to inspection, no thoracic nor lumbar tenderness and thoraco-lumbar ROM normal Extremity: COMMON NORMALS: normal to inspection, capillary refill normal, no joint enlargement, no calf tenderness and no pedal edema Neuro: COMMON NORMALS: patient oriented x3, moves all extremities, no focal motor deficits and no sensory deficits noted CRANIAL NERVES: Yes CN normal except as noted Psych: COMMON NORMALS: mental status grossly normal Skin: COMMON NORMALS: no rashes or lesions noted, no wounds and turgor normal GENERAL SKIN EXAM: no rashes or lesions noted and turgor normal Course Reevaluation(s): Reevaluation #1: Remains pain-free with reassuring vital signs at this time. Sinus rhythm on monitor. Time: 12:53 Reevaluation #2: Interacting with cell phone and eating. Remains pain-free. Plan will be to discharge with refills of her Imdur and metoprolol as long as she continues to r emain stable. Time: 13:22 Vital Signs: Vital signs: Vital Signs Pulse Rate 76 11/04/22 12:15 Respiratory Rate 19 H 11/04/22 12:15 Blood Pressure 149/75 11/04/22 12:03 Pulse Oximetry 97 11/04/22 12:15 Oxygen Delivery Me thod Room Air 11/04/22 11:33 MDM - Chest Pain Medical Decision Making This patient presented to our emergency department because of recurrent chest pain. She states that she was fixing meals for others when she started developing substernal chest pain. She took nitroglycerin which relieved her symptoms with adding the recurrence of symptoms. She has a known history of coronary artery disease and had 2 angiograms and there was a question whether she has had stents placed but still takes clopidogrel. Her clinical exam revealed her to be in no acute distress and there was no focal findings on clinical examination. Initial electrocardiogram did not reveal any acute ischemic changes. Work-up ensued to ensure no evidence of ACS or other concerni ng etiology of her pain. She remained pain-free throughout her emergency department stay. She was able to eat a meal interact on her cell phone and otherwise engage in normal activities without any discomfort. Serial troponins, serial EKGs, chest x-ray other ancillary studies were all reassuring. No evidence of ACS, low risk of thromboembolic event, no evidence of pneumonia etc. at this time. She has been out of her metoprolol and Imdur which may or may not be a contributing factor in her presentation both today and depressed several times in this emergency department. Stable at this time for discharge. We will provide with a continuation of her Imdur and metoprolol to ensure that she still has that medication. She apparently has follow-up scheduled. Medical Records I reviewed the patient's medical records. Recent emergency department visits reviewed and at that during those episodes no evidence of ACS or other concerning pathology. Lab Data I reviewed the patient's lab results. 11/04/22 11:47 11/04/22 11:47 Radiology Impressions Chest X-Ray 11/04/22 11:46 IMPRESSION: No acute findings. Laboratory Results WBC 15.1 10^3/uL (4.0-10.0) H 11/04/22 11:47 RBC 3.84 10^6/uL (4.1-5.3) L 11/04/22 11:47 Hgb 12.1 g/dL (11.5-15.3) 11/04/22 11:47 Hct 35.5 % (37.0-47.0) L 11/04/22 11:47 MCV 92.4 fl (81-99) 11/04/22 11:47 MCH 31.5 pg (28.0-34.0) 11/04/22 11:47 MCHC 34.1 g/dL (30.0-36.0) 11/04/22 11:47 RDW 12.4 % (12.1-15.1) 11/04/22 11:47 Plt Count 409 10^3/cmm (130-400) H 11/04/22 11:47 MPV 9.0 fL (7.4-10.4) 11/04/22 11:47 Neut % (Auto) 72.2 % 11/04/22 11:47 Lymph % (Auto) 20.8 % 11/04/22 11:47 [place] % (Auto) 5.7 % 11/04/22 11:47 Eos % (Auto) 0.0 % 11/04/22 11:47 Baso % (Auto) 0.2 % 11/04/22 11:47 Neut # (Auto) 10.88 10^3/uL (1.8-7.7) H 11/04/22 11:47 Lymph # (Auto) 3.1 10^3/uL (0.8-4.8) 11/04/22 11:47 [place] # (Auto) 0.9 10^3/uL (0.2-0.9) 11/04/22 11:47 Eos # (Auto) 0.0 10^3/uL (0.0-0.8) 11/04/22 11:47 Baso # (Auto) 0.0 10^3/uL (0.0-0.1) 11/04/22 11:47 Nucleated RBC % (auto) 0 % 11/04/22 11:47 Nucleated RBCs # 0.0 /100WBC 11/04/22 11:47 Sodium 139 mmol/L (136-145) 11/04/22 11:47 Potassium 4.0 mmol/L (3.5-5.1) 11/04/22 11:47 Chloride 104 mmol/L (98-107) 11/04/22 11:47 Carbon Dioxide 23 mmol/L (22-29) 11/04/22 11:47 Anion Gap 16.0 (5-19) 11/04/22 11:47 BUN 21 mg/dL (6-20) H 11/04/22 11:47 Creatinine 0.7 mg/dL (0.5-0.9) 11/04/22 11:47 GFR Calculation 86.9 mL/min (90-130) L 11/04/22 11:47 Glucose 175 mg/dL (65-115) H 11/04/22 11:47 Calculated Osmolality 295 mOsm/kg (285-295) 11/04/22 11:47 Calcium 9.4 mg/dL (8.5-10.5) 11/04/22 11:47 Troponin T Baseline 8 ng/L (0-10) 11/04/22 11:47 Troponin T 120 Minute 6.50 ng/L (0-10) 11/04/22 13:32 EKG Data EKG 1: I personally reviewed and interpreted this EKG as follows: Interpretation: Resting EKG reveals a ventricular rate of 73 bpm. Normal intervals, normal QRS, normal, normal corrected QT interval. Normal axis. No acute ST-T wave changes noted at this time. EKG 2: I personally reviewed and interpreted this EKG as follows: Interpretation: Second EKG this visit revealed ventricular rate of 77 bpm normal AR interval, QRS duration, corrected QT interval. Normal axis. No acute ST-T wave changes noted. No significant change from prior tracing this day. Discharge Plan Discharge Patient Disposition: Home Clinical Impression: Chest pain Condition: Stable Prescriptions: New isosorbide mononitrate 30 mg tablet extended release 24 hr 30 mg PO DAILY Qty: 30 1RF Continued metoprolol tartrate 25 mg tablet 25 mg PO BID Qty: 60 1RF No Action clonidine HCl 0.1 mg Tablet 0.1 mg PO BID atorvastatin [Lipitor] 20 mg Tablet 20 mg PO QAM alprazolam [Xanax] 1 mg Tablet 1 mg PO TID PRN (Reason: Anxiety) Tylenol Ex Str Rapid Release 500 mg Tablet 1,500 mg PO Q6H PRN (Reason: Pain) ibuprofen 200 mg Tablet 800 mg PO Q6H PRN (Reason: Pain) hydroxyzine pamoate 25 mg capsule 25 mg PO QID PRN (Reason: Anxiety) Unknown Mg Imdur 1 tab PO QAM clopidogrel 75 mg tablet 75 mg PO QAM lisinopril 10 mg tablet 10 mg PO QAM Discharge Orders: Discharge ED (Routine); Ordered 11/04/22 Ordered By: Arsh Florian Referrals: Heraclio Reid MD [Primary Care Provider] - Discharge Diet: Usual diet Discharge Activity: Increase activity as tolerated Patient Instructions: Opioid Safety, Pain Management Activity Restrictions/Additional Instructions: As we discussed your emergency department evaluation today did not reveal any evidence of serious conditions such as a heart attack etc. We recommend you discontinue any tobacco use or any other contributing factors for heart disease. We also recommend you should continue all your usual medications. You should plan on following up with your regular doctor in the next week to 10 days as scheduled. If you have develop any worsening symptoms you are welcome to return to the emergency department for reevaluation. Coding Level of Care Code ED Production Line Welder for Ivania Andrews
[2022-11-04 12:03] VITALS: BP 149/75; PULSE 76; RESP 19; O2SAT 97
[2022-11-04 12:04] LABS: Basophils % 0.2 %; Hematocrit 35.5 % (37.0-47.0); Hemoglobin 12.1 g/dL (11.5-15.3); Lymphocytes # 3.1 10^3/uL (0.8-4.8); Lymphocytes % 20.8 %; Mean Corpuscular HGB Conc 34.1 g/dL (30.0-36.0); Mean Corpuscular Hemoglobin 31.5 pg (28.0-34.0); Mean Corpuscular Volume 92.4 fl (81-99); Monocytes # 0.9 10^3/uL (0.2-0.9); Monocytes % 5.7 %; Neutrophils # 10.88 10^3/uL (1.8-7.7); Neutrophils % 72.2 %; Nucleated Red Blood Cells % 0 %; Platelet Count 409 10^3/cmm (130-400); Red Blood Count 3.84 10^6/uL (4.1-5.3); Red Cell Distribution Width 12.4 % (12.1-15.1); White Blood Count 15.1 10^3/uL (4.0-10.0)
[2022-11-04 12:15] VITALS: PULSE 76; RESP 19; O2SAT 97
[2022-11-04 12:26] LABS: Blood Urea Nitrogen 21 mg/dL (6-20); Calcium 9.4 mg/dL (8.5-10.5); Carbon Dioxide 23 mmol/L (22-29); Chloride 104 mmol/L (98-107); Glomerular Filtration Rate 86.9 mL/min (90-130); Glucose 175 mg/dL (65-115); Osmolality Calculated 295 mOsm/kg (285-295); Sodium 139 mmol/L (136-145)
[2022-11-04 12:31] LABS: Troponin(5th) Baseline 8 ng/L (0-10)
--- NOTE | 2022-11-04 13:10 | PC.PHAR ---
pt states she takes care of her own medications-pt states she takes imdur but is unsure of the mg pts pharmacy is not open on sundays-medications entered are what the pt states she takes notes are made in the pharmacy comments
--- NOTE | 2022-11-04 13:46 | ECG_ITS ---
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 Measurements Intervals [place] Rate: 77 P: 54 WI: 168 QRS: 66 QRSD: 90 T: 65 QT: 388 QTc: 439 Interpretive Statements SINUS RHYTHM POSSIBLE RIGHT VENTRICULAR CONDUCTION DELAY [RSR (QR) IN V1/V2] Compared to ECG 11/04/2022 11:34:30 No significant changes Electronically Signed On 11-04-2022 17:18:40 CDT by Tatiana Navarrete M.D. [email or web address]/[id number]
[2022-11-04 14:34] VITALS: BP 172/91; PULSE 89; O2SAT 99
--- NOTE | 2022-11-04 14:37 | PC.NURSE ---
PT refused to take isosorbide mononitrate prescription
== END 2022-11-04 14:39 | disposition home or self-care (01) ==
PROVIDERS: Emergency Provider Emergency Medicine; PCP Family Medicine Adult Medicine
DX: R07.9 Chest pain, unspecified (principal); Z79.02 Long term (current) use of antithrombotics/antiplatelets
CPT/HCPCS: 36415; 71045; 80048; 84484; 85025; 93005; 99285

== ENCOUNTER → 2022-11-07 08:51 | Outpatient (BNVA) | payer MEDICAID, SELFPAY | PROVIDERS: PCP Family Medicine Adult Medicine; Visit Provider Family Medicine Adult Medicine | DX: F41.9 Anxiety disorder, unspecified (principal); I10 Essential (primary) hypertension; Z86.19 Personal history of other infectious and parasitic diseases; R73.02 Impaired glucose tolerance (oral) | CPT/HCPCS: 83036; 84443; 86695; 86696 ==

== ENCOUNTER → 2022-12-10 09:05 | Outpatient (BNVA) | payer MEDICAID, SELFPAY | PROVIDERS: PCP Family Medicine Adult Medicine; Visit Provider Nurse Practitioner Family | DX: Z20.822 Contact with and (suspected) exposure to COVID-19 (principal); J06.9 Acute upper respiratory infection, unspecified | CPT/HCPCS: 87426 ==

== ENCOUNTER 2022-12-20 21:13 | Emergency (ER) | payer MEDICAID, SELFPAY ==
[2022-12-20 21:33] VITALS: BP 128/74; PULSE 77; RESP 18; TEMP 36.6; O2SAT 99; BMI 32.5
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
[2022-12-20] MEDS: mupirocin oint 22 gm 1 APPLIC TOPICAL (23:39)
[2022-12-20] MEDS: orphenadrine 30 mg/mL Inj 2 mL 60 MG IM (23:39)
[2022-12-20] MEDS: dexamethasone 10 mg/mL INJ IM (23:39)
== END 2022-12-21 00:06 | disposition home or self-care (01) ==
PROVIDERS: Emergency Provider Physician Assistant; PCP Family Medicine Adult Medicine
DX: S00.83XA Contusion of other part of head, initial encounter (principal); S80.02XA Contusion of left knee, initial encounter; S80.01XA Contusion of right knee, initial encounter; S00.81XA Abrasion of other part of head, initial encounter; S80.212A Abrasion, left knee, initial encounter; Z79.02 Long term (current) use of antithrombotics/antiplatelets; Z79.84 Long term (current) use of oral hypoglycemic drugs; F17.210 Nicotine dependence, cigarettes, uncomplicated; E11.9 Type 2 diabetes mellitus without complications; Z86.73 Personal history of transient ischemic attack (TIA), and cerebral infarction without residual deficits; E78.5 Hyperlipidemia, unspecified; I10 Essential (primary) hypertension; V19.3XXA Pedal cyclist (driver) (passenger) injured in unspecified nontraffic accident, initial encounter
CPT/HCPCS: 96372; 99284; J1100; J2360